=== PATIENT | male | born 1985 | race African-American/Black ===

== ENCOUNTER 2020-02-22 04:37 | Emergency (ER) | payer SELFPAY ==
[~2020-02-22] VITALS: Ht 182.9 cm; Wt 72.6 kg
[2020-02-22] MEDS: MORPHINE SULFATE 4 MG/ML SYR/VIAL IV ONE ×3 (04:50→07:15)
[2020-02-22] MEDS: ONDANSETRON HCL 4 MG/2 ML VIAL IV ONE (04:51)
[2020-02-22] MEDS: TETANUS-DIPTH-ACEL PERTUSSIS 0.5ML SYR Tdap IM ONE (05:29)
[2020-02-22] MEDS: cefTRIAXone 1GM/50ML D5W 50 ML IV ONE (05:31)
[2020-02-22] MEDS: LIDOCAINE 2%HCL (LOCAL ANESTH.) INJ 10ml MDV IJ ONE ×2 (06:33)
[2020-02-22] MEDS: LIDOCAINE 2%HCL (LOCAL ANESTH.) INJ 20ML MDV ONE ×2 (07:39)
[2020-02-22 09:05] VITALS: BP 114/62
== END 2020-02-22 09:34 | disposition short-term general hospital (02) ==
LOC: ER 04:37
DX: S81.851A Open bite, right lower leg, initial encounter (principal); W54.0XXA Bitten by dog, initial encounter; Y93.89 Activity, other specified; Y92.89 Other specified places as the place of occurrence of the external cause; Y99.8 Other external cause status
CPT/HCPCS: 73590; 90471; 90715; 96365; 96366; 96375; 96376; 99285; J0696; J2001; J2270; J2405

== ENCOUNTER 2020-02-25 15:33 | Emergency (ER) | payer MEDICAID ==
[~2020-02-25] VITALS: Ht 182.9 cm; Wt 74.8 kg
[2020-02-25 15:46] VITALS: BP 131/49
== END 2020-02-25 16:43 | disposition home or self-care (01) ==
LOC: ER 15:36
DX: S81.811D Laceration without foreign body, right lower leg, subsequent encounter (principal); F17.210 Nicotine dependence, cigarettes, uncomplicated; X58.XXXD Exposure to other specified factors, subsequent encounter